=== PATIENT | male | born 1950 | race Two or more races ===

== ENCOUNTER 2020-08-01 07:06 | Day surgery (SDC) | payer OTHER | END 2020-08-01 11:10 | disposition home or self-care (01) | LOC: AMB-ENDOS 07:06 | PROVIDERS: ATTEND Colon & Rectal Surgery | DX: D12.3 Benign neoplasm of transverse colon (principal); Z12.11 Encounter for screening for malignant neoplasm of colon; K64.8 Other hemorrhoids; Z20.828 Contact with and (suspected) exposure to other viral communicable diseases ==

== ENCOUNTER 2020-09-10 09:48 | Emergency (ER) | payer OTHER ==
[~2020-09-10] VITALS: Ht 175.3 cm; Wt 83.0 kg
[2020-09-10] MEDS ORDERED: CANDESARTAN CIL16 MG (10:18)
[2020-09-10] MEDS ORDERED: [UNRECOGNIZED DRUG - OTHER] (10:18)
[2020-09-10] MEDS ORDERED: CRESTOR10 MG (10:21)
[2020-09-10] MEDS ORDERED: [UNRECOGNIZED DRUG - OTHER] (10:21)
[2020-09-10] MEDS ORDERED: [UNRECOGNIZED DRUG - OTHER] (10:23)
[2020-09-10] MEDS ORDERED: FINASTERIDE1 MG (10:23)
[2020-09-10] MEDS ORDERED: ANASTROZOLE 1 MG (10:25)
[2020-09-10] MEDS ORDERED: DHEA25 MG (10:25)
[2020-09-10] MEDS ORDERED: VITAMINA D3 (10:26)
[2020-09-10] MEDS ORDERED: MAGNESIUM200 MG (10:26)
[2020-09-10] MEDS ORDERED: FOLIC ACID1 MG (10:27)
[2020-09-10] MEDS ORDERED: MELATONIN10 MG PO (16:30)
[2020-09-10] MEDS ORDERED: ZINC GLUCONATE100 MG PO (16:30)
[2020-09-10] MEDS ORDERED: VITAMIN D350 MCG PO (16:30)
[2020-09-10] MEDS ORDERED: VITAMIN C500 M6 PO (16:30)
[2020-09-10] MEDS ORDERED: LEVOFLOXACIN750 MG PO (16:30)
[2020-09-10] MEDS ORDERED: INTESTINEX680 M1 PO (16:30)
== END 2020-09-10 17:32 | disposition home or self-care (01) ==
LOC: ER 09:48
DX: U07.1 COVID-19 (principal); J12.89 Other viral pneumonia; E86.0 Dehydration; R50.9 Fever, unspecified; R06.02 Shortness of breath; R05 Cough